=== PATIENT | male | born 1990 | race Caucasian/White ===

== ENCOUNTER 2017-02-11 18:21 | Emergency (ER) | payer BC ==
[~2017-02-11] VITALS: Ht 190.5 cm; Wt 119.3 kg
[2017-02-11 20:11] VITALS: BP 146/97
== END 2017-02-11 20:11 | disposition home or self-care (01) ==
LOC: ED 18:21
DX: S63.286A Dislocation of proximal interphalangeal joint of right little finger, initial encounter (principal); Z79.2 Long term (current) use of antibiotics; X58.XXXA Exposure to other specified factors, initial encounter; Y93.67 Activity, basketball; Y92.89 Other specified places as the place of occurrence of the external cause; Y99.8 Other external cause status
CPT/HCPCS: A4570; J1885; Q0092